=== PATIENT | female | born 1990 | race Two or more races ===

== ENCOUNTER 2020-04-17 15:35 | Emergency (ER) | payer MEDICARE, OTHER ==
[~2020-04-17] VITALS: Ht 152.4 cm; Wt 74.8 kg
[~2020-04-17 15:35] MED LIST: ALBU90OI6; ALBU90OI6 INH; FLUSAL1005; FLUSAL1005 IH; NORT25 PO; OMEP40CA12 PO
[2020-04-17] MEDS ORDERED: IBUP600 PO (17:16)
== END 2020-04-17 17:45 | disposition home or self-care (01) ==
LOC: ER 15:35
DX: S83.005A Unspecified dislocation of left patella, initial encounter (principal); Z89.512 Acquired absence of left leg below knee; Z79.899 Other long term (current) drug therapy; W01.0XXA Fall on same level from slipping, tripping and stumbling without subsequent striking against object, initial encounter; Y93.89 Activity, other specified
CPT/HCPCS: 27560; 73562-LT; 96374-59; 99283-25; J1885